=== PATIENT | female | born 1995 | race Caucasian/White ===

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

== ENCOUNTER 2017-10-05 03:29 | Emergency (ER) | payer OTHER ==
[2017-10-05 04:05] VITALS: BP 138/97; PULSE 89; TEMP 98.6; BMI 40.2
[2017-10-05] MEDS ORDERED: ACETAMINOPHEN 500 MG TABLET (FP) PO ONE (04:10)
--- NOTE | 2017-10-05 04:10 | PDOC ---
History of Present Illness - General Chief Complaint: Ear Problem Stated Complaint: EAR PAIN/SORE THROAT Time Seen by Provider: 10/05/17 04:09 History Source: Patient - History of Present Illness Initial Comments: 10/05/17 04:24 22 year old female with right ear pain, throat pain and nasal congestion x 2 days. denies fever/ chills. patient has a past medical history CKD, HTN. Past History - Past Medical History Allergies/Adverse Reactions: Allergies Allergy/AdvReac Type Severity Reaction Status Date / Time escitalopram oxalate Allergy Hives Verified 10/05/17 04:03 [From Lexapro] grape Allergy Hives Verified 10/05/17 04:03 Home Medications: Ambulatory Orders Amlodipine Besylate [Norvasc -] 10 mg PO DAILY 08/01/16 Ondansetron [Zofran -] 4 mg PO TID PRN #21 tablet 08/01/16 Ciprofloxacin HCl/Dexameth [Ciprodex Otic Suspension] 4 drop OU BID #1 bottle Asthma: Yes HTN: Yes Kidney Stones: (stage 3 kidney disease since ) Psychiatric Problems: Yes (depression) - Reproductive History (#): 0 Para: 0 - Immunization History Immunization Up to Date: Yes - Suicide/Smoking/Psychosocial Hx Smoking Status: Yes Smoking History: Never smoked Have you smoked in the past 12 months: No Number of Cigarettes Smoked Daily: 10 Information on smoking cessation initiated: No Hx Alcohol Use: No Drug/Substance Use Hx: No Substance Use Type: None Review of Systems - Review of Systems Able to Perform ROS?: Yes Is the patient limited Kazakh proficient: No HEENTM: Yes: Ear Pain, Nose Congestion, Throat Pain Respiratory: Yes: Cough. No: Symptoms reported, See HPI, Orthopnea, Shortness of Breath, SOB with Exertion, SOB at Rest, Stridor, Wheezing, Productive cough, Hemoptysis, Other Cardiac (ROS): No: Symptoms Reported, See HPI, Chest Pain, Edema, Irregular Heart Rate, Lightheadedness, Palpitations, Syncope, Chest Tightness, Other ABD/GI: No: Symptoms Reported, See HPI, Abdominal Distended, Abd. Pain w/ defecation, Blood Streaked Bowels, Constipated, Diarrhea, Difficulty Swallowing , Nausea, Poor Appetite, Poor Fluid Intake, Rectal Bleeding, Vomiting, Indigestion, Abdominal cramping, Tarry Stools, Other : No: Symptoms Reported, See HPI, Burning, Dysuria, Discharge, Frequency, Flank Pain, Hematuria, Incontinence, Pain, Urgency, Testicular Mass, Testicular Swelling, Lesions, Testicular Pain, Other *Physical Exam - Vital Signs Last Vital Signs Temp Pulse Resp BP Pulse Ox 98.6 F 89 20 138/97 99 10/05/17 04:04 10/05/17 04:04 10/05/17 04:04 10/05/17 04:04 10/05/17 04:04 - Physical Exam General Appearance: Yes: Appropriately Dressed HEENT: positive: Tonsillar Erythema, Other (right ear canal erythema. TM dull bulging) Respiratory/Chest: positive: Lungs Clear, Normal Breath Sounds Cardiovascular: positive: Regular Rhythm, Regular Rate Gastrointestinal/Abdominal: positive: Normal Bowel Sounds, Soft Extremity: positive: Normal Capillary Refill, Normal Inspection, Normal Range of Motion Integumentary: positive: Normal Color, Dry, Warm Neurologic: positive: Fully Oriented, Alert, Normal Mood/Affect Medical Decision Making - Medical Decision Making 10/05/17 04:43 otitis externa P: pain control rapid strep 10/05/17 04:44 *DC/Admit/Observation/Transfer Diagnosis at time of Disposition: Earache on right Otitis externa of right ear Qualifiers: Otitis externa type: diffuse Chronicity: acute Qualified Code(s): H60.311 - Diffuse otitis externa, right ear - Discharge Dispostion Disposition: HOME - Prescriptions Prescriptions: Ciprofloxacin HCl/Dexameth [Ciprodex Otic Suspension] 4 drop OU BID #1 bottle - Referrals Referrals: Nettie Rothman MD [Primary Care Provider] - - Patient Instructions Printed Discharge Instructions: Otitis Externa Additional Instructions: taske tylenol every 6 hours as needed for pain follow up with your doctor as soon as possible. - Post Discharge Activity
[2017-10-05] MEDS ORDERED: ACETAMINOPHEN 325 MG TABLET (FP) PO ONE (04:14)
[2017-10-05] MEDS ORDERED: ACETAMINOPHEN 325 MG TABLET (FP) ONE (04:14)
--- NOTE | 2017-10-05 05:01 | PDOC ---
*Physical Exam - Vital Signs Last Vital Signs Temp Pulse Resp BP Pulse Ox 98.6 F 89 20 138/97 99 10/05/17 04:04 10/05/17 04:04 10/05/17 04:04 10/05/17 04:04 10/05/17 04:04 ED Treatment Course - ADDITIONAL ORDERS Additional order review: 10/05/17 04:20 Group A Strep Rapid Antigen - Preliminary Throat - Medications Given in the ED: ED Medications Discontinued Medications Generic Name Dose Route Start Last Admin Trade Name Mainor PRN Reason Stop Dose Admin Acetaminophen 1,000 mg 10/05/17 04:10 10/05/17 04:25 Tylenol - PO 10/05/17 04:11 Not Given ONCE ONE Acetaminophen 975 mg 10/05/17 04:14 10/05/17 04:20 Tylenol - PO 10/05/17 04:15 975 mg ONCE ONE Administration Medical Decision Making - Medical Decision Making 10/05/17 05:01 agree woth care from JAMES Riggs *DC/Admit/Observation/Transfer Diagnosis at time of Disposition: Earache on right Otitis externa of right ear Qualifiers: Otitis externa type: diffuse Chronicity: acute Qualified Code(s): H60.311 - Diffuse otitis externa, right ear - Prescriptions Prescriptions: Ciprofloxacin HCl/Dexameth [Ciprodex Otic Suspension] 4 drop OU BID #1 bottle - Referrals Referrals: Nettie Rothman MD [Primary Care Provider] - - Patient Instructions - Post Discharge Activity
== END 2017-10-05 05:17 | disposition home or self-care (01) ==
LOC: JER 03:29
DX: H60.311 Diffuse otitis externa, right ear (principal); I12.9 Hypertensive chronic kidney disease with stage 1 through stage 4 chronic kidney disease, or unspecified chronic kidney disease; N18.3 Chronic kidney disease, stage 3 (moderate); F32.9 Major depressive disorder, single episode, unspecified
CPT/HCPCS: 87070; 87430; 99282-25

== ENCOUNTER 2019-01-28 16:36 | Emergency (ER) | payer OTHER ==
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
[2019-01-28 16:58] VITALS: BP 153/89; PULSE 100; TEMP 98.1; BMI 43.4
[2019-01-28] MEDS ORDERED: IBUPROFEN 400 MG TABLET (FP) PO ONE ×2 (17:48→17:51)
[2019-01-28] MEDS ORDERED: BACITRACIN 15 GM TUBE TOPICAL OINTMENT TP ONE (17:48)
[2019-01-28] MEDS ORDERED: BACITRACIN 15 GM TUBE TOPICAL OINTMENT ONE (17:51)
[2019-01-28] MEDS ORDERED: ACETAMINOPHEN 500 MG TABLET (FP) ONE (17:52)
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
[2019-01-28] MEDS ORDERED: ACETAMINOPHEN 500 MG TABLET (FP) PO ONE (18:22)
== END 2019-01-28 18:19 | disposition home or self-care (01) ==
LOC: JERFT 16:36
DX: W20.8XXA Other cause of strike by thrown, projected or falling object, initial encounter (principal); Y93.89 Activity, other specified; Y92.89 Other specified places as the place of occurrence of the external cause; N19 Unspecified kidney failure; I10 Essential (primary) hypertension; J45.909 Unspecified asthma, uncomplicated; F32.9 Major depressive disorder, single episode, unspecified
CPT/HCPCS: 73630-TC-RT-FY; 99282-25